=== PATIENT | male | born 1955 | race Caucasian/White ===

== ENCOUNTER → 2016-07-27 | Outpatient (CLI) | payer OTHER ==
--- NOTE | 2016-07-27 14:33 | KCIC ---
Clinical Indications: Indication: Hypertension. Previous stroke Exam : Carotid Duplex with Grayscale Ultrasound and Spectral and Color Doppler Analysis: PQRS Compliance Statement - Stenosis calculations for CT, MR and conventional angiography are based upon measurement of the distal ICA diameter in accordance with the NASCET methodology. Stenosis calculations for carotid ultrasound studies are derived from validated velocity criteria which are known to correlate with the NASCET methodology. Comparison study: None available. Findings: The common, internal and external carotid arteries were examined by grayscale, color and spectral Doppler ultrasound. There is calcified plaque in the proximal right ICA and soft plaque in the proximal left ICA. Flow in both vertebral arteries was antegrade and normal. The following are the velocities and ratios in the carotid arteries on both sides: RIGHT ICA PV: 171cm/sec RIGHT CCA PV: 72cm/sec RIGHT ICA ED: 13cm/sec RIGHT ICA/CCA PV: 2.36 RIGHT VERTEBRAL: antegrade flow RIGHT % STENOSIS: 50-69 percent LEFT ICA PV: Occluded distally LEFT CCA PV: 93cm/sec LEFT ICA ED: Occluded distally LEFT ICA/CCA PV: Erroneous LEFT VERTEBRAL: antegrade flow LEFT % STENOSIS: Greater than 70 percent <50% ICA Stenosis: PSV < 125cm/s (EDV < 40cm/s; SVR < 2.0) 50-69% ICA Stenosis: PSV < 125-229cm/s (EDV 40-99cm/s; SVR 2.0-3.9) >70% ICA Stenosis: PSV > 230cm/s (EDV >100cm/s; SVR >4.0) Impression: Occlusion of the distal left internal carotid artery. 50-69 percent stenosis of the right internal carotid artery. Electronically signed by: Jonathan Moon MD (07/27/2016 2:29 PM)
== END | disposition home or self-care (01) ==
LOC: KCIC US 08:45
PROVIDERS: ATTEND Family Medicine
DX: I10 Essential (primary) hypertension (principal); I65.23 Occlusion and stenosis of bilateral carotid arteries
CPT/HCPCS: 93880

== ENCOUNTER 2017-08-11 06:37 | Observation (INO) | payer OTHER ==
[2017-08-11 07:04] LABS: HEMATOCRIT 39.5 % (39.0-53.0); MEAN CORPUSCULAR HEMOGLOBIN 29 pg (25-35); MEAN CORPUSCULAR HGB CONC 33 g/dL (31-37); MEAN CORPUSCULAR VOLUME 88 fL (79-100); PLATELET COUNT 218 x10^3/uL (140-400); RED BLOOD COUNT 4.52 x10^6/uL (4.30-5.70); RED CELL DISTRIBUTION WIDTH 14.4 % (11.5-14.5); WHITE BLOOD COUNT 11.7 x10^3/uL (4.0-11.0)
[2017-08-11] MEDS ORDERED: IODIXANOL 320 MG/ML 100 ML VIAL. ×2 (07:10→08:34)
[2017-08-11] MEDS ORDERED: LIDOCAINE 2% 20 ML VIAL. (07:10)
[2017-08-11 07:13] LABS: INR 0.9 (0.8-1.1); PROTHROMBIN TIME PATIENT 11.6 SEC (11.7-14.0)
[2017-08-11 07:28] LABS: ANION GAP 8 (6-14); BLOOD UREA NITROGEN 15 mg/dL (8-26); CALCIUM 9.3 mg/dL (8.5-10.1); CARBON DIOXIDE 29 mmol/L (21-32); CHLORIDE 103 mmol/L (98-107); CREATININE 0.7 mg/dL (0.7-1.3); GLUCOSE 155 mg/dL (70-99); POTASSIUM 4.2 mmol/L (3.5-5.1); SODIUM 140 mmol/L (136-145)
[2017-08-11] MEDS ORDERED: fentaNYL PF VIAL 100 MCG/2 ML VIAL (07:40)
[2017-08-11] MEDS ORDERED: MIDAZOLAM HCL/PF 2 MG/2 ML VIAL. ×2 (07:40→08:45)
[2017-08-11] MEDS ORDERED: NITROGLYCERIN PREMIX 250 ML IV (08:34)
[2017-08-11] MEDS ORDERED: BIVALIRUDIN 250 MG VIAL. IV (08:40)
[2017-08-11] MEDS: NITROGLYCERIN PREMIX 250 ML IV (09:15)
[2017-08-11] MEDS ORDERED: TICAGRELOR 90 MG TABLET. (09:23)
[2017-08-11] MEDS: LIDOCAINE 2% 20 ML VIAL. IJ (09:27)
[2017-08-11] MEDS: IODIXANOL 320 MG/ML 100 ML VIAL. IART (09:27)
[2017-08-11] MEDS: IV NORMAL SALINE 1000ML BAG 1,000 ML IV (09:27)
[2017-08-11] MEDS: fentaNYL PF VIAL 100 MCG/2 ML VIAL IV (09:28)
[2017-08-11] MEDS: MIDAZOLAM HCL/PF 2 MG/2 ML VIAL. IV (09:28)
[2017-08-11] MEDS: TICAGRELOR 90 MG TABLET. PO (09:29)
[2017-08-11] MEDS: BIVALIRUDIN 250 MG VIAL. IV (09:29)
[2017-08-11] MEDS: ASPIRIN CHEWABLE 81 MG TABLET. PO (09:29)
[2017-08-11] MEDS ORDERED: NITROGLYCERIN SUBLINGUAL 0.4 MG BOTTLE OF 25. SL (09:30)
[2017-08-11] MEDS: NITROGLYCERIN 200 MCG/2 ML SYRINGE FOR CATH/VASC LAB. IART (09:30)
[2017-08-11] MEDS ORDERED: ATROPINE 0.5 MG/5 ML DISP.SYRINGE. IV (09:30)
[2017-08-11] MEDS ORDERED: fentaNYL PF VIAL 100 MCG/2 ML VIAL IV (09:30)
[2017-08-11] MEDS ORDERED: oxyCODONE/APAP 5/325 1 TAB TABLET PO ×2 (09:30)
[2017-08-11] MEDS ORDERED: 0.9 % SODIUM CHLORIDE 10 ML DISP.SYRIN. IV (09:30)
[2017-08-11] MEDS ORDERED: AMIODARONE 150 MG in IV DEXTROSE 5% 100ML 100 ML IV (09:30)
[2017-08-11] MEDS ORDERED: LIDOCAINE 2% 100 MG/5 ML SYRINGE. IV (09:30)
[2017-08-11] MEDS ORDERED: ACETAMINOPHEN 325 MG TABLET. PO (09:30)
[2017-08-11] MEDS: METOPROLOL SUCC 24HR ER 25 MG TAB.ER.24H. PO (10:44)
[2017-08-11] MEDS: LISINOPRIL 20 MG TABLET PO (10:45)
[2017-08-11] MEDS ORDERED: HYDROcodone/APAP 5/325MG 1 TAB TABLET PO (11:45)
[2017-08-11] MEDS ORDERED: DEXTROSE 50% 25 GM / 50ML DISP.SYRIN. IV (12:15)
[2017-08-11 12:18] LABS: POC GLUCOSE 215 mg/dL (70-99)
[2017-08-11] MEDS: PIOGLITAZONE 15 MG TABLET. PO (12:42)
[2017-08-11] MEDS: PANTOPRAZOLE 40 MG TABLET.DR. PO (12:42)
[2017-08-11] MEDS: INSULIN LISPRO 300 UNITS/3 ML INSULN.PEN. SQ ×2 (12:46→17:42)
[2017-08-11] MEDS: GABAPENTIN 400 MG CAPSULE. PO ×2 (14:00→21:00)
[2017-08-11 17:46] LABS: POC GLUCOSE 183 mg/dL (70-99)
[2017-08-11] MEDS: METHOCARBAMOL 750 MG TABLET PO (21:00)
[2017-08-11] MEDS: ATORVASTATIN CALCIUM 20 MG TABLET PO (21:00)
[2017-08-11] MEDS: SENNOSIDES/DOCUSATE 8.6/50MG TABLET. PO (21:00)
[2017-08-11] MEDS: METHADONE 10 MG TABLET. PO (21:00)
[2017-08-11 21:23] LABS: POC GLUCOSE 164 mg/dL (70-99)
[2017-08-12 08:07] LABS: POC GLUCOSE 154 mg/dL (70-99)
[2017-08-12] MEDS: PANTOPRAZOLE 40 MG TABLET.DR. PO (08:31)
[2017-08-12] MEDS: METHADONE 10 MG TABLET. PO (08:31)
[2017-08-12] MEDS: GABAPENTIN 400 MG CAPSULE. PO (08:31)
[2017-08-12] MEDS: TICAGRELOR 90 MG TABLET. PO (08:32)
[2017-08-12] MEDS: PIOGLITAZONE 15 MG TABLET. PO (08:32)
[2017-08-12] MEDS: SENNOSIDES/DOCUSATE 8.6/50MG TABLET. PO (08:32)
[2017-08-12] MEDS: ASPIRIN ENTERIC COATED 81 MG TABLET.DR. PO (08:32)
[2017-08-12] MEDS: LISINOPRIL 10 MG TABLET PO (08:32)
[2017-08-12] MEDS: METOPROLOL SUCC 24HR ER 25 MG TAB.ER.24H. PO (08:33)
[2017-08-12] MEDS: INSULIN LISPRO 300 UNITS/3 ML INSULN.PEN. SQ (08:36)
[2017-08-12] MEDS ORDERED: ATORVASTATIN CALCIUM 40 MG TABLET. PO (21:00)
[2017-08-13] MEDS ORDERED: ASPIRIN CHEWABLE 81 MG TABLET. PO (09:00)
[2017-08-14] MEDS ORDERED: METOPROLOL SUCC 24HR ER 25 MG TAB.ER.24H. PO (09:00)
== END 2017-08-12 11:00 | disposition home or self-care (01) ==
LOC: CCL 06:37 → 2 NORTH 08:56
DX: I25.119 Atherosclerotic heart disease of native coronary artery with unspecified angina pectoris (principal); E11.51 Type 2 diabetes mellitus with diabetic peripheral angiopathy without gangrene; E78.5 Hyperlipidemia, unspecified; I10 Essential (primary) hypertension
CPT/HCPCS: 36415; 80048; 82962; 85027; 85610; 92928; 93005; 93458; 96365; 96366; 96372; 96375; 99152; 99153; C1713; C1725; C1769; C1771; C1892; G0269; G0378; G0379; J0583; J1644; J1815; J2001; J2250; J3010; J3490

== ENCOUNTER → 2018-09-19 | Outpatient (CLI) | payer OTHER ==
[2017-08-12 08:33] VITALS: BP 129/83
[~2018-09-19] MED LIST: ASPI-630 PO; ATOR40TA59 PO; CLOP75TA57 PO; GABA800T5 PO; HYDR-2761 PO; LISI-334 PO; LISI10TA2 PO; METF500T16 PO; METH-38 PO; METH10TA2 PO; METO-239 PO; PANT20TA2 PO; SENN1TAB71 PO; TICA90TA PO; [UNRECOGNIZED DRUG - OTHER] PO
--- NOTE | 2018-09-19 11:19 | KCIC ---
Bilateral Duplex Carotid Ultrasound, 09/19/2018 Comparison: Bilateral carotid Doppler from July 27, 2016 Indication: Follow-up of left carotid occlusion. Procedure: Real-time, grayscale, color flow, duplex Doppler and spectral analysis off the carotid arteries is performed and images are obtained . Vertebral arteries were also imaged FINDINGS: There is chronic complete occlusion of the left internal carotid artery in the proximal and midportion. Diffuse scattered atheromatous plaquing is also seen in both common carotid arteries, right carotid bulb and proximal internal and external carotid arteries. Peak systolic velocities in cm/sec: Right side: CCA: 117 ICA: 111 ICA (End Diastolic Velocity): 44 ICA/CCA Ratio: 1.24 Left side: CCA: 97 ICA: Occluded ICA (End Diastolic Velocity): Occluded ICA/CCA Ratio: Could not be obtained due to occlusion of internal carotid artery Vertebral arteries are antegrade. IMPRESSION: 1. 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 2. Moderate atheromatous plaquing involving the right common carotid artery, carotid bulb and internal carotid artery with an estimated stenosis between 50 and 69 percent. These findings are stable. PQRS Compliance Statement - Stenosis calculations for CT, MR and conventional angiography are based upon measurement of the distal ICA diameter in accordance with the NASCET methodology. Stenosis calculations for carotid ultrasound studies are derived from validated velocity criteria which are known to correlate with the NASCET methodology. Electronically signed by: Mitzi Cain MD (09/19/2018 11:15 AM) [facility]
== END | disposition home or self-care (01) ==
LOC: KCIC US 08:40
PROVIDERS: ATTEND Family Medicine
DX: I65.22 Occlusion and stenosis of left carotid artery (principal); I70.203 Unspecified atherosclerosis of native arteries of extremities, bilateral legs
CPT/HCPCS: 93880